=== PATIENT | female | born 2005 | race Caucasian/White ===

== ENCOUNTER 2025-04-28 22:44 | Emergency (ER) | payer MEDICAID ==
[~2025-04-28] VITALS: Ht 160 cm; Wt 49.0 kg
[2025-04-28 22:46] VITALS: O2SAT 100
[2025-04-28 23:42] LABS: BASOPHILS % 0.7 % (0.0-2.0); EOSINOPHILS % 3.5 % (0.0-5.0); HEMATOCRIT. 36.8 % (36.0-48.0); HEMOGLOBIN. 12.4 g/dL (12.0-16.0); LYMPHOCYTES % 32.3 % (20.0-50.0); MEAN PLATELET VOLUME 8.9 fl (7.4-10.4); MONOCYTES % 9.8 % (2.0-8.0); NEUTROPHILS % 53.7 % (40.0-76.0); PLATELET 217 x1000/uL (130-400); RED BLOOD CELL COUNT 4.08 mill/uL (4.2-5.4); RED CELL DISTRIBUTION WIDTH 13.6 % (11.6-14.6)
[2025-04-28 23:56] LABS: HCG SCREEN NEGATIVE
[2025-04-28 23:57] LABS: CREATININE 0.8 mg/dL (0.6-1.0)
[2025-04-28 23:58] LABS: UREA NITROGEN BLOOD 9 mg/dL (9-23)
[2025-04-28 23:59] LABS: ASPARTATE AMINOTRANSFERASE 13 IU/L (<34); TROPONIN I HIGH SENSITIVITY < 4 ng/L (3.0-34)
[2025-04-29] LABS: BILIRUBIN DIRECT 0.1 mg/dL (<=3.0); BILIRUBIN TOTAL 0.5 mg/dL (0.1-1.0); PROTEIN TOTAL 6.3 g/dL (6.0-8.3)
[2025-04-29 00:32] LABS: CLARITY URINE CLOUDY (CLEAR); COLOR URINE YELLOW (YELLOW); GLUCOSE URINE NEGATIVE (NEGATIVE); KETONES URINE NEGATIVE (NEGATIVE); LEUKOCYTE ESTERASE URINE 3+ (NEGATIVE); NITRITE URINE NEGATIVE (NEGATIVE); OCCULT BLOOD URINE NEGATIVE (NEGATIVE); PH URINE 6.5 (4.5-8.0); PROTEIN URINE NEGATIVE (NEGATIVE); SPECIFIC GRAVITY URINE 1.011 (1.005-1.030); UROBILINOGEN URINE 0.2 E.U./dL (0.2-1.0)
[2025-04-29 00:35] LABS: BACTERIA URINE 3+; RBC URINE 0-2 /hpf (0-2); SQUAMOUS EPITHELIAL CELL URINE 1+ /lpf (RARE/1+)
[2025-04-29] MEDS ORDERED: NITR-87 MT (00:47)
[2025-04-29 01:00] VITALS: BP 104/59; PULSE 69; RESP 13; TEMP 36.6; O2SAT 99
== END 2025-04-29 01:21 | disposition home or self-care (01) ==
LOC: ER 22:44
DX: R55 Syncope and collapse (principal); N39.0 Urinary tract infection, site not specified; R42 Dizziness and giddiness; R11.0 Nausea
CPT/HCPCS: 36415; 71045; 80048; 80076; 81003; 82962; 84484; 84703; 85025; 87077; 93005; 99285